=== PATIENT | male | born 1935 | race Caucasian/White ===

== ENCOUNTER → 2017-07-22 08:58 | Outpatient (CLI) | payer MEDICARE, OTHER ==
[2010-05-02 11:23] VITALS: BMI 26.3
[2017-07-22 09:49] LABS: HEMATOCRIT 38.7 % (42.0-54.0); HEMOGLOBIN 12.6 g/dL (13.5-17.5); MCH 29.9 pg (26.0-34.0); MCHC 32.6 g/dL (31.0-37.0); MCV 91.7 fL (80.0-100.0); MEAN PLATELET VOLUME 9.2 fL (7.4-10.4); RBC 4.22 10x6/uL (4.20-6.10); RDW 13.8 % (11.5-14.5); WBC 8.5 10x3/uL (4.8-10.8)
[2017-07-22 09:59] LABS: PLATELET COUNT 106 10x3/uL (130-400)
[2017-07-22 10:12] LABS: APPEARANCE CLEAR (CLEAR); BILIRUBIN NEGATIVE (NEGATIVE); COLOR YELLOW (YELLOW); GLUCOSE NEGATIVE (NEGATIVE); KETONE NEGATIVE (NEGATIVE); LEUKOCYTE ESTERASE NEGATIVE (NEGATIVE); NITRITE NEGATIVE (NEGATIVE); PROTEIN NEGATIVE (NEGATIVE); SPECIFIC GRAVITY 1.025 (1.005-1.020); UROBILINOGEN NORMAL (NORMAL)
[2017-07-22 10:31] LABS: EOSINOPHILS 4 % (0-7); LYMPHOCYTES 47 % (15-50); MONOCYTES 8 % (2-11); NEUTROPHILS 40 % (40-80); PLATELET ESTIMATE DECREASED
[2017-07-22 10:41] LABS: ALBUMIN 3.7 g/dL (3.4-5.0); ANION GAP 13.6 mmol/L (8-16); BILIRUBIN - TOTAL 0.45 mg/dL (0.2-1.3); CALCIUM 8.3 mg/dL (8.5-10.1); CARBON DIOXIDE 27.7 mmol/L (21.0-32.0); CHOL - HDL RATIO 4.6 ratio (2.3-4.9); CREATININE - SERUM 1.4 mg/dL (0.6-1.3); POTASSIUM - SERUM 4.3 mmol/L (3.5-5.1); PROTEIN - SERUM 6.8 g/dL (6.4-8.2)
[2017-07-22 10:42] LABS: SCREENING PSA (YEARLY) 5.29 ng/mL (0.00-4.00)
== END | disposition home or self-care (01) ==
LOC: D.LAB 08:58
PROVIDERS: Family Medicine
DX: Z00.00 Encounter for general adult medical examination without abnormal findings (principal); N40.0 Benign prostatic hyperplasia without lower urinary tract symptoms; I10 Essential (primary) hypertension; I25.10 Atherosclerotic heart disease of native coronary artery without angina pectoris

== ENCOUNTER 2017-12-08 12:49 | Emergency (ER) | payer MEDICARE, OTHER ==
[2010-05-02 11:23] VITALS: BMI 26.3
[2017-12-08 14:13] LABS: BASOPHILS 0.3 % (0-2); EOSINOPHILS 2.7 % (0-7); HEMATOCRIT 38.6 % (42.0-54.0); HEMOGLOBIN 12.5 g/dL (13.5-17.5); IMMATURE GRANULOCYTES 0.3 % (0-5); LYMPHOCYTES 48.3 % (15-50); MCH 29.9 pg (26.0-34.0); MCHC 32.4 g/dL (31.0-37.0); MCV 92.3 fL (80.0-100.0); MEAN PLATELET VOLUME 8.9 fL (7.4-10.4); MONOCYTES 11.3 % (2-11); NEUTROPHILS 37.1 % (40-80); PLATELET COUNT 120 10x3/uL (130-400); RBC 4.18 10x6/uL (4.20-6.10); RDW 13.5 % (11.5-14.5); WBC 7.7 10x3/uL (4.8-10.8)
[2017-12-08 14:31] LABS: ALBUMIN 3.7 g/dL (3.4-5.0); ANION GAP 10.1 mmol/L (8-16); BILIRUBIN - TOTAL 0.61 mg/dL (0.2-1.3); CALCIUM 8.6 mg/dL (8.5-10.1); CARBON DIOXIDE 28.8 mmol/L (21.0-32.0); CREATININE - SERUM 1.3 mg/dL (0.6-1.3); POTASSIUM - SERUM 3.9 mmol/L (3.5-5.1)
[2017-12-08 14:56] LABS: APPEARANCE CLEAR (CLEAR); BILIRUBIN NEGATIVE (NEGATIVE); COLOR YELLOW (YELLOW); GLUCOSE NEGATIVE (NEGATIVE); KETONE NEGATIVE (NEGATIVE); NITRITE NEGATIVE (NEGATIVE); PROTEIN NEGATIVE (NEGATIVE); SPECIFIC GRAVITY 1.025 (1.005-1.020); UROBILINOGEN NORMAL (NORMAL)
[2017-12-08 14:57] LABS: RED CELLS - URINE OCC /hpf (0-5); WHITE CELLS - URINE OCC /hpf (0-5)
== END 2017-12-08 16:13 | disposition home or self-care (01) ==
LOC: D.ER 12:49
PROVIDERS: Family Medicine; Nurse Practitioner Family
DX: S29.012A Strain of muscle and tendon of back wall of thorax, initial encounter (principal); X58.XXXA Exposure to other specified factors, initial encounter; Y93.89 Activity, other specified; Y92.019 Unspecified place in single-family (private) house as the place of occurrence of the external cause; N39.0 Urinary tract infection, site not specified

== ENCOUNTER → 2018-01-27 09:58 | Outpatient (CLI) | payer MEDICARE, OTHER ==
[2010-05-02 11:23] VITALS: BMI 26.3
== END | disposition home or self-care (01) ==
LOC: D.US 09:58
DX: M79.605 Pain in left leg (principal); M79.604 Pain in right leg; R22.43 Localized swelling, mass and lump, lower limb, bilateral

== ENCOUNTER 2018-01-30 10:14 | Emergency (ER) | payer MEDICARE, OTHER ==
[2010-05-02 11:23] VITALS: BMI 26.3
[2018-01-30 11:56] LABS: BASOPHILS 0.3 % (0-2); EOSINOPHILS 2.9 % (0-7); HEMATOCRIT 39.1 % (42.0-54.0); HEMOGLOBIN 12.5 g/dL (13.5-17.5); IMMATURE GRANULOCYTES 0.3 % (0-5); LYMPHOCYTES 48.8 % (15-50); MCH 29.3 pg (26.0-34.0); MCV 91.6 fL (80.0-100.0); MEAN PLATELET VOLUME 9.1 fL (7.4-10.4); MONOCYTES 8.3 % (2-11); NEUTROPHILS 39.4 % (40-80); PLATELET COUNT 121 10x3/uL (130-400); RBC 4.27 10x6/uL (4.20-6.10); RDW 13.6 % (11.5-14.5); WBC 7.8 10x3/uL (4.8-10.8)
[2018-01-30 12:08] LABS: INR 1.02 (0.85-1.17)
[2018-01-30 12:11] LABS: ALBUMIN 3.7 g/dL (3.4-5.0); ALKALINE PHOSPHATASE 111 U/L (46-116); ALT (SGPT) 16 U/L (10-68); BILIRUBIN - TOTAL 0.53 mg/dL (0.2-1.3); CALC OSMOLALITY 291 mosm/kg (275-300); CALCIUM 8.6 mg/dL (8.5-10.1); CREATININE - SERUM 1.4 mg/dL (0.6-1.3); GLUCOSE 104 mg/dL (74-106); POTASSIUM - SERUM 4.3 mmol/L (3.5-5.1); SODIUM 143 mmol/L (136-145); UREA NITROGEN 31 mg/dL (7-18); eGFR NON AFRICAN AMERICAN 51 mL/min (90-120)
[2018-01-30 12:15] LABS: TROPONIN-I < 0.017 ng/mL (0.000-0.060)
[2018-01-30 12:16] LABS: CHLORIDE - SERUM 108 mmol/L (98-107)
== END 2018-01-30 13:05 | disposition home or self-care (01) ==
LOC: D.ER 10:14
PROVIDERS: Nurse Practitioner Family
DX: I73.9 Peripheral vascular disease, unspecified (principal)

== ENCOUNTER → 2018-02-17 09:20 | Outpatient (CLI) | payer MEDICARE, OTHER ==
[2010-05-02 11:23] VITALS: BMI 26.3
--- NOTE | ~2018-02-17 | EC ---
PATIENT:KEE ANDERS DATE OF SERVICE: 02/17/18 SEX: M MEDICAL RECORD: [id number] DATE OF : 31 LOCATION:[facility] AGE OF PATIENT: 83 ADMISSION DATE: 02/17/18 REFERRING PHYSICIAN: INTERPRETING PHYSICIAN: CHILANGO MICHAELS MD ECHOCARDIOGRAM REPORT ECHO CHARGES 4 ECHO COMPLETE CLINICAL DIAGNOSIS: PAIN IN LLE, HTN CAD DYSPNEA ECHOCARDIOGRAPHIC MEASUREMENTS (adult normal given) AC root (d.<3.7cm) 4.6 cm LV Septum d (<1.2 cm> 1.4 cm Valve Excursion 1.8 cm LV Septum (systole) 1.8 cm Left Atria (s.<4.0cm> 4.1 cm LVPW d(<1.2cm) 2.2 cm RV (d.<2.3cm) 3.9 cm LVPW (sytole) 2.3 cm LV diastole(<5.6CM) 4.1 cm MV E-F(>70mm/sec) cm LV systole 3.2 cm LVOT Diameter cm MV exc.(>10mm) cm Est.ejection fraction (50-75%) % Pericardial Effusion N DOPPLER: LVIT cm/sec A 110 cm/sec E 57 cm/sec LA cm/sec RVSP mmHg LVOT 135 cm/sec AOP1/2T m/s Asc. Ao 162 cm/sec RVOT 89 cm/sec RA cm/sec PA 127 cm/sec AV Gradient Peak 10.50mmHg AV Mean 5.18 mmHg AV Area 2.6 cm MV Gradient Peak 5.77 mmHg MV Mean 1.85 mmHg MV Area cm COMMENTS: Cellular Equipment Repairer: Shayne LOVETT Manager Documentation: 4 Dr. Michaels TAPE# PACS DATE OF SERVICE: 02/17/2018 PROCEDURE: Transthoracic echocardiogram. FINDINGS: 1. This is a difficult study overall with images being of qualitative quality rather than quantitative. 2. The left ventricle shows an ejection fraction of 55%. There appears to be left ventricular hypertrophy. Inflow characteristics are consistent with diastolic dysfunction. ECHOCARDIOGRAM REPORT [id number] KEE ANDERS 3. The left atrium appears to be grossly dilated. 4. The mitral valve appears to be overall normal with maybe mitral annular calcification. 5. The tricuspid valve is very difficult to visualize, but there was no evidence of pulmonary hypertension. 6. The right ventricle appears to be mildly dilated as well as the right atrium. Interatrial septum was not well visualized. 7. The pulmonic valve is not well visualized. CONCLUSIONS: The patient has grossly normal function with evidence of hypertensive heart disease. TRANSINT:[id number] Voice Confirmation ID: [id number] DOCUMENT ID: [id number] CHILANGO MICHAELS MD at 0755 CC: [id number] DICTATION DATE: 02/18/18 0740 VACUUM COOKER OPERATOR: 02/18/18 0836 DEP CLI 02/17/18 [id number] [place] [address]
== END | disposition home or self-care (01) ==
LOC: D.ECHO 09:20
DX: M79.605 Pain in left leg (principal); R06.02 Shortness of breath; R06.00 Dyspnea, unspecified; I10 Essential (primary) hypertension; I25.10 Atherosclerotic heart disease of native coronary artery without angina pectoris

== ENCOUNTER 2018-04-28 09:33 | Emergency (ER) | payer MEDICARE, OTHER ==
[2010-05-02 11:23] VITALS: BMI 26.3
== END 2018-04-28 12:17 | disposition home or self-care (01) ==
LOC: D.ER 09:33
DX: S32.030A Wedge compression fracture of third lumbar vertebra, initial encounter for closed fracture (principal); S32.040G Wedge compression fracture of fourth lumbar vertebra, subsequent encounter for fracture with delayed healing; S32.050A Wedge compression fracture of fifth lumbar vertebra, initial encounter for closed fracture; X58.XXXA Exposure to other specified factors, initial encounter; Y93.9 Activity, unspecified; Y92.9 Unspecified place or not applicable

== ENCOUNTER → 2018-06-19 11:02 | Outpatient (CLI) | payer MEDICARE, OTHER ==
[2010-05-02 11:23] VITALS: BMI 26.3
[~2018-06-19 11:02] MED LIST: FUROSEMIDE20 MG PO; POTASSIUM99 M1; TENORMIN50 MG PO
[2018-06-19 11:31] LABS: BASOPHILS 0.1 % (0-2); EOSINOPHILS 2.1 % (0-7); HEMATOCRIT 38.2 % (42.0-54.0); HEMOGLOBIN 12.9 g/dL (13.5-17.5); IMMATURE GRANULOCYTES 0.2 % (0-5); LYMPHOCYTES 44.9 % (15-50); MCHC 33.8 g/dL (31.0-37.0); MCV 91.8 fL (80.0-100.0); MEAN PLATELET VOLUME 9.2 fL (7.4-10.4); MONOCYTES 9.6 % (2-11); NEUTROPHILS 43.1 % (40-80); PLATELET COUNT 106 10x3/uL (130-400); RBC 4.16 10x6/uL (4.20-6.10); RDW 14.1 % (11.5-14.5); WBC 8.8 10x3/uL (4.8-10.8)
[2018-06-19 11:57] LABS: ALBUMIN 3.8 g/dL (3.4-5.0); BILIRUBIN - TOTAL 0.78 mg/dL (0.2-1.3); CALCIUM 8.6 mg/dL (8.5-10.1); CARBON DIOXIDE 32.6 mmol/L (21.0-32.0); CREATININE - SERUM 1.5 mg/dL (0.6-1.3); MAGNESIUM - SERUM 2.2 mg/dL (1.8-2.4); PHOSPHOROUS 3.7 mg/dL (2.5-4.9); POTASSIUM - SERUM 4.6 mmol/L (3.5-5.1); PROTEIN - SERUM 6.5 g/dL (6.4-8.2)
== END | disposition home or self-care (01) ==
LOC: D.LAB 11:02
PROVIDERS: Family Medicine
DX: I25.10 Atherosclerotic heart disease of native coronary artery without angina pectoris (principal); I10 Essential (primary) hypertension; R60.9 Edema, unspecified

== ENCOUNTER 2018-08-02 13:15 | Emergency (ER) | payer MEDICARE, OTHER ==
[~2018-08-02] VITALS: Ht 188 cm; Wt 88.6 kg
[2018-08-02 13:20] VITALS: Ht 188 cm; Wt 88.6 kg
[2018-08-02] MEDS ORDERED: FUROSEMIDE20 MG PO (13:21)
[2018-08-02] MEDS ORDERED: POTASSIUM99 M1 (13:21)
[2018-08-02 13:38] LABS: BASOPHILS 0.2 % (0-2); EOSINOPHILS 2.1 % (0-7); HEMATOCRIT 38.8 % (42.0-54.0); HEMOGLOBIN 12.5 g/dL (13.5-17.5); IMMATURE GRANULOCYTES 0.2 % (0-5); LYMPHOCYTES 58.5 % (15-50); MCH 29.8 pg (26.0-34.0); MCHC 32.2 g/dL (31.0-37.0); MCV 92.6 fL (80.0-100.0); MEAN PLATELET VOLUME 9.6 fL (7.4-10.4); MONOCYTES 7.5 % (2-11); NEUTROPHILS 31.5 % (40-80); PLATELET COUNT 122 10x3/uL (130-400); RBC 4.19 10x6/uL (4.20-6.10); RDW 13.6 % (11.5-14.5); WBC 9.9 10x3/uL (4.8-10.8)
[2018-08-02 13:53] LABS: ALBUMIN 3.7 g/dL (3.4-5.0); ALKALINE PHOSPHATASE 98 U/L (46-116); ALT (SGPT) 14 U/L (10-68); BILIRUBIN - TOTAL 0.48 mg/dL (0.2-1.3); CALC OSMOLALITY 286 mosm/kg (275-300); CALCIUM 8.3 mg/dL (8.5-10.1); CARBON DIOXIDE 30.7 mmol/L (21.0-32.0); CHLORIDE - SERUM 106 mmol/L (98-107); CREATININE - SERUM 1.3 mg/dL (0.6-1.3); GLUCOSE 91 mg/dL (74-106); PROTEIN - SERUM 6.9 g/dL (6.4-8.2); SODIUM 142 mmol/L (136-145); UREA NITROGEN 23 mg/dL (7-18); eGFR NON AFRICAN AMERICAN 56 mL/min (90-120)
[2018-08-02 14:05] LABS: CKMB 1.2 U/L (0.0-3.6); CREATINE KINASE 49 UL (21-232); TROPONIN-I < 0.017 ng/mL (0.000-0.060)
[2018-08-02] MEDS ORDERED: TENORMIN50 MG PO (15:02)
[2018-08-02 15:17] VITALS: BP 168/108
== END 2018-08-02 15:18 | disposition home or self-care (01) ==
LOC: D.ER 13:15
PROVIDERS: Emergency Medicine
DX: R07.89 Other chest pain (principal); I10 Essential (primary) hypertension; I25.10 Atherosclerotic heart disease of native coronary artery without angina pectoris; Z85.828 Personal history of other malignant neoplasm of skin

== ENCOUNTER 2018-10-22 13:50 | Emergency (ER) | payer MEDICARE, OTHER ==
[~2018-10-22] VITALS: Ht 188 cm; Wt 0.0 kg
[2018-10-22 13:52] VITALS: Ht 188 cm; Wt 0.0 kg
[2018-10-22 14:41] LABS: BASOPHILS 0.2 % (0-2); EOSINOPHILS 2.1 % (0-7); HEMATOCRIT 31.8 % (42.0-54.0); HEMOGLOBIN 10.1 g/dL (13.5-17.5); IMMATURE GRANULOCYTES 0.2 % (0-5); LYMPHOCYTES 48.8 % (15-50); MCH 29.5 pg (26.0-34.0); MCHC 31.8 g/dL (31.0-37.0); MEAN PLATELET VOLUME 9.7 fL (7.4-10.4); MONOCYTES 9.9 % (2-11); NEUTROPHILS 38.8 % (40-80); RBC 3.42 10x6/uL (4.20-6.10); RDW 14.1 % (11.5-14.5); WBC 5.8 10x3/uL (4.8-10.8)
[2018-10-22 14:45] LABS: ALBUMIN 3.5 g/dL (3.4-5.0); ALKALINE PHOSPHATASE 73 U/L (46-116); ALT (SGPT) 15 U/L (10-68); BILIRUBIN - TOTAL 0.62 mg/dL (0.2-1.3); CALC OSMOLALITY 291 mosm/kg (275-300); CALCIUM 8.3 mg/dL (8.5-10.1); CARBON DIOXIDE 29.2 mmol/L (21.0-32.0); CHLORIDE - SERUM 106 mmol/L (98-107); CREATININE - SERUM 1.4 mg/dL (0.6-1.3); GLUCOSE 92 mg/dL (74-106); PLATELET COUNT 87 10x3/uL (130-400); POTASSIUM - SERUM 4.3 mmol/L (3.5-5.1); PROTEIN - SERUM 6.1 g/dL (6.4-8.2); SODIUM 142 mmol/L (136-145); UREA NITROGEN 37 mg/dL (7-18); eGFR NON AFRICAN AMERICAN 51 mL/min (90-120)
[2018-10-22 14:58] LABS: CKMB 1.1 U/L (0.0-3.6); CREATINE KINASE 49 UL (21-232); PRO BNP 634 pg/mL (0-450)
[2018-10-22 15:01] LABS: TROPONIN-I < 0.017 ng/mL (0.000-0.060)
[2018-10-22 15:10] LABS: PLATELET ESTIMATE DECREASED
[2018-10-22] MEDS ORDERED: ISOSORBIDE MONO30 M1 PO (17:16)
[2018-10-22 18:05] VITALS: BP 160/88
== END 2018-10-22 17:53 | disposition home or self-care (01) ==
LOC: D.ER 13:50
PROVIDERS: Family Medicine
DX: I20.8 Other forms of angina pectoris (principal); I10 Essential (primary) hypertension; N42.9 Disorder of prostate, unspecified

== ENCOUNTER → 2018-11-27 10:34 | Outpatient (CLI) | payer MEDICARE, OTHER ==
[~2018-11-27 10:34] MED LIST changes: +ISOSORBIDE MONO30 M1 PO
== END | disposition home or self-care (01) ==
LOC: D.LAB 10:34
DX: N40.0 Benign prostatic hyperplasia without lower urinary tract symptoms (principal)

== ENCOUNTER 2019-01-29 13:50 | Emergency (ER) | payer MEDICARE, BC ==
[~2019-01-29] VITALS: Ht 188 cm; Wt 90.0 kg
[2019-01-29 14:18] VITALS: Ht 188 cm; Wt 90.0 kg
[2019-01-29] MEDS ORDERED: PROSCAR5 MG PO (14:26)
[2019-01-29] MEDS ORDERED: NAPROXEN250 MG PO (14:26)
[2019-01-29] MEDS ORDERED: CARDURA4 MG PO (14:27)
[2019-01-29] MEDS ORDERED: LASIX40 MG PO (14:28)
[2019-01-29] MEDS ORDERED: ACETAMINOPHEN500 M1 PO (14:28)
[2019-01-29] MEDS ORDERED: MULTI-DAY VITAM1 TAB PO (14:29)
[2019-01-29 16:15] VITALS: BP 140/70
== END 2019-01-29 16:15 | disposition home or self-care (01) ==
LOC: D.ER 13:50
DX: S46.911A Strain of unspecified muscle, fascia and tendon at shoulder and upper arm level, right arm, initial encounter (principal); X58.XXXA Exposure to other specified factors, initial encounter; Y93.89 Activity, other specified; Y92.89 Other specified places as the place of occurrence of the external cause

== ENCOUNTER 2019-09-13 13:40 | Emergency (ER) | payer MEDICARE, BC ==
[~2019-09-13] VITALS: Ht 188 cm; Wt 88.6 kg
[~2019-09-13 13:40] MED LIST changes: +ACETAMINOPHEN500 M1 PO; +CARDURA4 MG PO; +LASIX40 MG PO; +MULTI-DAY VITAM1 TAB PO; +NAPROXEN250 MG PO; +PROSCAR5 MG PO
[2019-09-13 13:47] VITALS: Ht 188 cm; Wt 88.6 kg
[2019-09-13 14:33] LABS: BASOPHILS 0.2 % (0-2); EOSINOPHILS 1.6 % (0-7); HEMOGLOBIN 10.1 g/dL (13.5-17.5); IMMATURE GRANULOCYTES 0.2 % (0-5); MCH 30.1 pg (26.0-34.0); MCHC 31.6 g/dL (31.0-37.0); MCV 95.2 fL (80.0-100.0); MONOCYTES 10.3 % (2-11); NEUTROPHILS 45.7 % (40-80); PLATELET COUNT 89 10x3/uL (130-400); RBC 3.36 10x6/uL (4.20-6.10); RDW 13.4 % (11.5-14.5); WBC 4.9 10x3/uL (4.8-10.8)
[2019-09-13 14:58] LABS: ALBUMIN 3.6 g/dL (3.4-5.0); ANION GAP 10.3 mmol/L (8-16); BILIRUBIN - TOTAL 0.7 mg/dL (0.2-1.3); CARBON DIOXIDE 27.8 mmol/L (21.0-32.0); CREATININE - SERUM 1.3 mg/dL (0.6-1.3); POTASSIUM - SERUM 4.1 mmol/L (3.5-5.1); PROTEIN - SERUM 6.4 g/dL (6.4-8.2)
[2019-09-13 15:09] LABS: PLATELET ESTIMATE DECREASED
[2019-09-13] MEDS ORDERED: NORVASC5 MG PO (15:13)
[2019-09-13 15:29] VITALS: BP 170/76
== END 2019-09-13 15:38 | disposition home or self-care (01) ==
LOC: D.ER 13:40
PROVIDERS: Emergency Medicine
DX: I10 Essential (primary) hypertension (principal); E87.8 Other disorders of electrolyte and fluid balance, not elsewhere classified; I25.10 Atherosclerotic heart disease of native coronary artery without angina pectoris

== ENCOUNTER 2019-11-10 09:46 | Observation (INO) | payer MEDICARE, BC ==
[~2019-11-10] VITALS: Ht 188 cm; Wt 83.9 kg
[~2019-11-10 09:46] MED LIST changes: +NORVASC5 MG PO
[2019-11-10 10:23] LABS: BASOPHILS 0.2 % (0-2); EOSINOPHILS 0.9 % (0-7); HEMATOCRIT 36.2 % (42.0-54.0); HEMOGLOBIN 11.5 g/dL (13.5-17.5); IMMATURE GRANULOCYTES 0.3 % (0-5); LYMPHOCYTES 44.1 % (15-50); MCH 29.8 pg (26.0-34.0); MCHC 31.8 g/dL (31.0-37.0); MCV 93.8 fL (80.0-100.0); MONOCYTES 7.2 % (2-11); NEUTROPHILS 47.3 % (40-80); RBC 3.86 10x6/uL (4.20-6.10); RDW 12.6 % (11.5-14.5); WBC 6.4 10x3/uL (4.8-10.8)
[2019-11-10 10:27] LABS: PLATELET COUNT 107 10x3/uL (130-400)
[2019-11-10 10:32] LABS: CALC OSMOLALITY 292 mosm/kg (275-300); CALCIUM 8.6 mg/dL (8.5-10.1); CARBON DIOXIDE 30.2 mmol/L (21.0-32.0); CHLORIDE - SERUM 109 mmol/L (98-107); CREATININE - SERUM 1.2 mg/dL (0.6-1.3); GLUCOSE 124 mg/dL (74-106); POTASSIUM - SERUM 4.2 mmol/L (3.5-5.1); SODIUM 145 mmol/L (136-145); UREA NITROGEN 22 mg/dL (7-18); eGFR NON AFRICAN AMERICAN 61 mL/min (90-120)
[2019-11-10 10:49] LABS: ALBUMIN 3.5 g/dL (3.4-5.0); ALKALINE PHOSPHATASE 98 U/L (46-116); ALT (SGPT) 20 U/L (10-68); BILIRUBIN - TOTAL 0.45 mg/dL (0.2-1.3); CKMB 0.9 U/L (0.0-3.6); CREATINE KINASE 45 UL (21-232); PROTEIN - SERUM 6.4 g/dL (6.4-8.2)
[2019-11-10 10:50] LABS: TROPONIN-I < 0.017 ng/mL (0.000-0.060)
[2019-11-10 11:00] VITALS: BP 160/81
[2019-11-10 11:08] LABS: APTT 23.7 SECONDS (22.8-39.4); INR 1.04 (0.85-1.17); PROTIME 13.5 SECONDS (11.6-15.0)
[2019-11-10 12:00] VITALS: BP 158/88
[2019-11-10] MEDS ORDERED: NORVASC5 MG PO (13:02)
[2019-11-10 13:13] VITALS: BP 166/93
[2019-11-10 13:20] LABS: APPEARANCE CLEAR (CLEAR); BILIRUBIN NEGATIVE (NEGATIVE); COLOR YELLOW (YELLOW); GLUCOSE NEGATIVE (NEGATIVE); KETONE NEGATIVE (NEGATIVE); NITRITE NEGATIVE (NEGATIVE); PROTEIN NEGATIVE (NEGATIVE); UROBILINOGEN NORMAL (NORMAL)
[2019-11-10 15:38] VITALS: BP 183/89; Ht 188 cm; Wt 83.9 kg
[2019-11-10 19:30] VITALS: BP 138/81
--- NOTE | 2019-11-10 19:30 | NUR ---
1700 PT RESTING IN BED, NO DISTRESS NOTED, DENIES DIZZINES EXCEPT WHEN STANDING, CONT TO MONITOR
[2019-11-11 00:30] VITALS: BP 148/75
[2019-11-11 04:53] LABS: BASOPHILS 0.1 % (0-2); EOSINOPHILS 1.8 % (0-7); HEMATOCRIT 32.9 % (42.0-54.0); HEMOGLOBIN 10.4 g/dL (13.5-17.5); IMMATURE GRANULOCYTES 0.1 % (0-5); LYMPHOCYTES 59.6 % (15-50); MCH 29.5 pg (26.0-34.0); MCHC 31.6 g/dL (31.0-37.0); MCV 93.2 fL (80.0-100.0); MEAN PLATELET VOLUME 9.3 fL (7.4-10.4); MONOCYTES 8.3 % (2-11); NEUTROPHILS 30.1 % (40-80); PLATELET COUNT 110 10x3/uL (130-400); RBC 3.53 10x6/uL (4.20-6.10); RDW 12.7 % (11.5-14.5); WBC 7.7 10x3/uL (4.8-10.8)
[2019-11-11 05:00] VITALS: BP 151/80
[2019-11-11 05:28] LABS: ALBUMIN 3.1 g/dL (3.4-5.0); BILIRUBIN - TOTAL 0.33 mg/dL (0.2-1.3); CALCIUM 7.7 mg/dL (8.5-10.1); CARBON DIOXIDE 28.9 mmol/L (21.0-32.0); CREATININE - SERUM 1.3 mg/dL (0.6-1.3); POTASSIUM - SERUM 3.9 mmol/L (3.5-5.1); PROTEIN - SERUM 5.7 g/dL (6.4-8.2)
--- NOTE | 2019-11-11 08:15 | NUR ---
PT SITTING UP IN BED. RESP EVEN AND UNLABORED. DENIES PAIN AT THIS TIME. FLU SWAB PERFORMED AT THIS TIME PER MD ORDERS. IV TO LEFT AC WITH NS @ 75ML/HR INFUSING VIA PUMP. SITE WITHOUT REDNESS OR EDEMA. EDUCATED PT REGARDING ISOLATION PRECAUTIONS AT THIS TIME. AND AWAITING FLU RESULTS AND IF NEGATIVE ISOLATION WOULD BE DISCONTINUED. PT VOICES UNDERSTANDING. DENIES FURTHER QUESTIONS AT THIS TIME. DENIES FURTHER NEEDS AT THIS TIME. CL WITHIN REACH. ENCOURAGED TO CALL WITH NEEDS. CONTINUE POC
[2019-11-11 09:21] VITALS: BP 137/77
--- NOTE | 2019-11-11 10:40 | CN ---
PATIENT NAME:KEE ANDERS MEDICAL RECORD: [id number] : 31 LOCATION:[facility] ADMIT DATE: 11/10/19 ACCOUNT: [id number] CONSULTING PHYSICIAN: JASON BABIN MD REFERRING PHYSICIAN: LEXII BROWER MD DATE OF CONSULTATION: 11/10/2019 DIAGNOSES: 1. Dizziness. 2. Shortness of breath. 3. Coronary artery disease. 4. Previous cardiac stents. 5. Murmur. 6. Hypertension. HISTORY OF PRESENT ILLNESS: This is a gentleman who we have not seen for years. He thinks 10 years ago. I did a PTCA and stent on him. He was doing well until this morning, he woke up it was very dizzy to the point where he had trouble ambulating. Even when he sat down he was quite dizzy. He did check his blood pressure. His systolic was 210 at the time of the episode. He called the EMS. When EMS arrived his systolic was in the 180 range. When he arrived in the Emergency Room, his systolic is 160 range. His symptomatology has generally improved since this morning. His severe dizziness lasted approximately 2 hours. He had no chest pain. He did have nausea with this, he had mild diaphoresis, mild shortness of breath with this. All this is as well resolved, his EKG is with no abnormalities, only finding on the physical exam was the systolic murmur most likely compatible with aortic sclerosis or aortic stenosis. He has no carotid bruits. PHYSICAL EXAMINATION: CONSTITUTIONAL/GENERAL APPEARANCE: Well nourished, well developed, appears stated age. EYES: Lids and conjunctivae noninjected. No discharge. No pallor. ENT: Lips within normal limit. No cyanosis. No pallor. NECK: Carotid arteries, bilateral normal upstroke. No bruits. No thrills. No jugular venous pressure or distention. CERVICAL LYMPH NODES: Nontender. Nonenlarged. THYROID: Not enlarged. No nodules. CARDIOVASCULAR: Precordial exam, nondisplaced. No heaves or pericardial thrills. Rate and rhythm, regular. Heart sounds, normal S1, normal S2. No S3, no gallop, no rub. Diastolic murmur, not heard. II/ systolic murmur at the right upper sternal border compatible with aortic valve disease. RESPIRATORY: Respiratory effort, unlabored. Normal curvature. No thoracic deformity. No chest wall tenderness. Percussion, resonant. Auscultation, clear. No wheezes, no rales, no rhonchi. ABDOMEN: Soft, nondistended, nontender. No abdominal pain, no vomiting and normal appetite. MUSCULOSKELETAL: No joint tenderness, normal gait, normal tone. SKIN: Warm and dry. OVERALL IMPRESSION: Dizziness, unsure of the exact etiology of his dizziness. He was on blood pressure medications until just a few months ago, it appears that he was on Norvasc 5 and Cardura 4 mg b.i.d. He had a low blood pressure and both his medications were stopped by Dr. Mckeon. Since then, he has been hypertensive, not as hypertensive as this morning. Clearly, his symptomatology CONSULT REPORT [id number] KEE ANDERS was associated with hypertension this morning. Would suggest restarting his Norvasc but not restarting the Cardura. We will get an echocardiogram to evaluate the murmur. Otherwise, I do not think that this is overtly cardiac in nature. TRANSINT:[id number] Voice Confirmation ID: [id number] DOCUMENT ID: [id number] JASON BABIN MD at 1040 CC: [id number] DICTATION DATE: 11/10/19 115 CATERING CHEF: 11/10/192008 ADM IN [facility] [address] [place] [address]
--- NOTE | 2019-11-11 10:40 | EC ---
PATIENT:KEE ANDERS DATE OF SERVICE: 11/10/19 SEX: M MEDICAL RECORD: [id number] DATE OF : 31 LOCATION:[facility] AGE OF PATIENT: 84 ADMISSION DATE: 11/10/19 REFERRING PHYSICIAN: INTERPRETING PHYSICIAN: JASON HERBERT MD ECHOCARDIOGRAM REPORT ECHO CHARGES 5 ECHO LIMITED Date: 11/10/19 CLINICAL DIAGNOSIS: DIZZINESS, HX CAD ECHOCARDIOGRAPHIC MEASUREMENTS (adult normal given) AC root (d.<3.7cm) cm LV Septum d (<1.2 cm> cm Valve Excursion 4.2 cm LV Septum (systole) cm Left Atria (s.<4.0cm> 3.9 cm LVPW d(<1.2cm) cm RV (d.<2.3cm) 5.2 cm LVPW (sytole) cm LV diastole(<5.6CM) 3.8 cm MV E-F(>70mm/sec) cm LV systole 3.8 cm LVOT Diameter 2.3 cm MV exc.(>10mm) cm Est.ejection fraction (50-75%) % DOPPLER: LVIT cm/sec A 99.0 cm/sec E 125.0 cm/sec LA cm/sec RVSP mmHg LVOT 100 cm/sec AOP1/2T m/s Asc. Ao 121 cm/sec RVOT cm/sec RA cm/sec PA cm/sec AV Gradient Peak 5.82 mmHg AV Mean 2.82 mmHg AV Area 3.8 cm MV Gradient Peak 6.72 mmHg MV Mean 3.37 mmHg MV Area cm COMMENTS: Insulation Blower: Shayne LOVETT Procedure Rn: 1 Dr. Herbert TAPE# PACS Pericardial Effusion N DATE OF SERVICE: 11/10/2019 ECHOCARDIOGRAM FINDINGS: 1. Left ventricular chamber size is within normal limits. Left ventricular systolic function is normal. Overall ejection fraction estimated at 55% to 60%. 2. Left atrium is enlarged at 4.2 cm. Right atrium and right ventricular chamber sizes are within normal limits. 3. Valvular structures have normal structure and motion. ECHOCARDIOGRAM REPORT [id number] KEE ANDERS 4. Doppler interrogation reveals mild mitral regurgitation, no other valvular insufficiency or stenosis. 5. No evidence of pericardial effusion or left ventricular thrombus. TRANSINT:[id number] Voice Confirmation ID: [id number] DOCUMENT ID: [id number] JASON HERBERT MD at 1040 CC: [id number] DICTATION DATE: 11/10/191705 KENO WRITER / RUNNER: 11/11/19 0138 ADM IN [facility] [address] [id number]
[2019-11-11 17:28] VITALS: BP 126/78
[2019-11-11 19:30] VITALS: BP 140/81
--- NOTE | 2019-11-12 00:10 | NUR ---
ASSESSED AT THE BEGINNING OF THE SHIFT. PT IS ALERT AND ORIENTED, ABLE TO VERBALIZE NEEDS. HE DID NOT HAVE ANY MEDS AT BEDTIME BUT WAS CHECKED ON TO MAKE SURE HE WAS COMFORTABLE. AT THIS TIME NO REQUESTES VOICED.
[2019-11-12 00:30] VITALS: BP 165/92
[2019-11-12 05:19] VITALS: BP 176/90
[2019-11-12 06:45] LABS: ANION GAP 11.1 mmol/L (8-16); CALCIUM 7.7 mg/dL (8.5-10.1); CARBON DIOXIDE 25.7 mmol/L (21.0-32.0); CREATININE - SERUM 1.2 mg/dL (0.6-1.3); POTASSIUM - SERUM 3.8 mmol/L (3.5-5.1)
[2019-11-12 06:49] LABS: BASOPHILS 0.1 % (0-2); EOSINOPHILS 2.2 % (0-7); HEMATOCRIT 33.2 % (42.0-54.0); HEMOGLOBIN 10.6 g/dL (13.5-17.5); LYMPHOCYTES 59.7 % (15-50); MCH 29.6 pg (26.0-34.0); MCHC 31.9 g/dL (31.0-37.0); MCV 92.7 fL (80.0-100.0); MEAN PLATELET VOLUME 9.2 fL (7.4-10.4); MONOCYTES 9.6 % (2-11); NEUTROPHILS 28.4 % (40-80); PLATELET COUNT 97 10x3/uL (130-400); RBC 3.58 10x6/uL (4.20-6.10); RDW 12.8 % (11.5-14.5); WBC 7.8 10x3/uL (4.8-10.8)
--- NOTE | 2019-11-12 07:00 | NUR ---
PT IS RESTING IN BED WITH EYES OPEN. RESPIRATIONS ARE EVEN AND UNLABORED. PT DENIES PRESENCE OF PAIN/N/V. PT DENIES DIZZINESS. PT IS AAO X 4. BED IS IN THE LOWEST POSITION. CALL LIGHT AND BEDSIDE TABLE ARE WITHIN REACH. SIDE RAILS X 2. PT DENIES FURTHER NEEDS. WILL CONT TO MONITOR.
[2019-11-12] MEDS ORDERED: NORVASC5 MG PO (07:33)
[2019-11-12] MEDS ORDERED: AUGMENTIN 875-11 TAB PO (07:33)
[2019-11-12 08:50] VITALS: BP 124/85
--- NOTE | 2019-11-12 10:48 | NUR ---
ALL DISCHARGE INSTRUCTIONS COVERED WITH PT. (2) PRINTED RX GIVEN TO PT. PT VERBALIZES UNDERSTANDING OF DC INSTRUCTIONS. PIV TO LEFT AC REMOVED WITH CATHETER TIP INTACT. DRESSING APPLIED. PT DENIES FURTHER QUESTIONS/CONCERNS/NEEDS AT THIS TIME. ALL DISCHARGE PAPERS SIGNED. PT TO NOTIFY NURSE WHEN READY FOR DISCHARGE.
--- NOTE | 2019-11-12 10:53 | NUR ---
PT IS REQUESTING TO BE TRANSPORTED DOWNSTAIRS TO WAIT FOR TRANSPORTATION AND IS ADAMENT ON NOT WAITING IN ROOM. PT STATES "THAT IS FINE AND I CAN WAIT AND SIT RIGHT THERE IN A CHAIR DOWNSTAIRS. HE IS ON HIS WAY AND IS IN A HURRY BECAUSE HE NEEDS TO GET TO WORK". [facility] STAFF NOTIFIED OF PT NEED FOR ASSISTANCE.
--- NOTE | 2019-11-12 11:01 | NUR ---
PT TRANSPORTED FROM ROOM VIA WHEELCHAIR ESCORTED BY [facility]. PT DENIES FURTHER QUESTIONS/CONCERNS/NEEDS AT THIS TIME.
[2019-11-12 11:28] LABS: PLATELET ESTIMATE DECREASED
[2019-11-12 11:29] LABS: HYPOCHROMASIA OCC; ROULEAUX OCC
== END 2019-11-12 11:02 | disposition home or self-care (01) ==
LOC: D.ER 09:46 → D.MS 13:45 → OBSVTIME 13:45 → D.MS 13:45
PROVIDERS: Emergency Medicine; Family Medicine; ADMIT Legal Medicine; ATTEND Legal Medicine
DX: R55 Syncope and collapse (principal); I10 Essential (primary) hypertension; R42 Dizziness and giddiness; D64.9 Anemia, unspecified; K11.8 Other diseases of salivary glands; R01.1 Cardiac murmur, unspecified; I25.10 Atherosclerotic heart disease of native coronary artery without angina pectoris; R06.02 Shortness of breath; Z95.5 Presence of coronary angioplasty implant and graft

== ENCOUNTER → 2019-11-17 11:09 | Outpatient (CLI) | payer MEDICARE, BC ==
[~2019-11-17 11:09] MED LIST changes: +AUGMENTIN 875-11 TAB PO
[2019-11-17 13:32] LABS: HEMATOCRIT 38.8 % (42.0-54.0); HEMOGLOBIN 12.3 g/dL (13.5-17.5); MCH 29.6 pg (26.0-34.0); MCHC 31.7 g/dL (31.0-37.0); MCV 93.5 fL (80.0-100.0); MEAN PLATELET VOLUME 9.4 fL (7.4-10.4); PLATELET COUNT 127 10x3/uL (130-400); RBC 4.15 10x6/uL (4.20-6.10); RDW 12.8 % (11.5-14.5); WBC 8.6 10x3/uL (4.8-10.8)
[2019-11-17 14:23] LABS: ANISOCYTOSIS OCC; EOSINOPHILS 2 % (0-7); LYMPHOCYTES 51 % (15-50); MONOCYTES 10 % (2-11); NEUTROPHILS 36 % (40-80); PLATELET ESTIMATE NORMAL
== END | disposition home or self-care (01) ==
LOC: D.LABREF 11:09
PROVIDERS: ATTEND Legal Medicine
DX: I10 Essential (primary) hypertension (principal); D64.9 Anemia, unspecified

== ENCOUNTER → 2021-03-28 09:35 | Outpatient (CLI) | payer MEDICARE, BC ==
[2021-03-28 10:05] LABS: HEMOGLOBIN 11.5 g/dL (13.5-17.5); LYMPHOCYTE ABS# 4.77 10x3/uL (1.32-3.57); MCH 28.9 pg (26.0-34.0); MCHC 31.9 g/dL (31.0-37.0); MCV 90.5 fL (80.0-100.0); MEAN PLATELET VOLUME 9.2 fL (7.4-10.4); NEUTROPHIL ABS# 2.88 10x3/uL (1.78-5.38); PLATELET COUNT 116 10x3/uL (130-400); RBC 3.98 10x6/uL (4.20-6.10); RDW 14.1 % (11.5-14.5); WBC 9.1 10x3/uL (4.8-10.8)
[2021-03-28 10:32] LABS: ALBUMIN 3.6 g/dL (3.4-5.0); ALKALINE PHOSPHATASE 103 U/L (30-120); ALT (SGPT) 22 U/L (10-68); BILIRUBIN - TOTAL 0.41 mg/dL (0.2-1.3); CALC OSMOLALITY 292 mosm/kg (275-300); CALCIUM 8.6 mg/dL (8.5-10.1); CARBON DIOXIDE 28.9 mmol/L (21.0-32.0); CHLORIDE - SERUM 108 mmol/L (98-107); CHOL - HDL RATIO 4.1 ratio (2.3-4.9); CHOLESTEROL, TOTAL 168 mg/dL (0-200); CREATININE - SERUM 1.4 mg/dL (0.6-1.3); GLUCOSE 99 mg/dL (74-106); HDL CHOLESTEROL 41 mg/dL (32-96); LDL CHOLESTEROL 109 mg/dL (0-100); LDL-HDL RATIO 2.7 ratio (1.5-3.5); POTASSIUM - SERUM 4.5 mmol/L (3.5-5.1); PROTEIN - SERUM 6.8 g/dL (6.4-8.2); SODIUM 144 mmol/L (136-145); THYROID STIMULATING HORMONE 2.54 uIU/mL (0.36-3.74); TRIGLYCERIDE 94 mg/dL (30-200); UREA NITROGEN 28 mg/dL (7-18); eGFR NON AFRICAN AMERICAN 51 mL/min (90-120)
[2021-03-28 12:22] LABS: EOSINOPHILS 10 % (0-7); LYMPHOCYTES 49 % (15-50); MONOCYTES 9 % (2-11); NEUTROPHILS 32 % (40-80); PLATELET ESTIMATE DECREASED
== END | disposition home or self-care (01) ==
LOC: D.LAB 09:35
PROVIDERS: ATTEND Family Medicine
DX: J44.9 Chronic obstructive pulmonary disease, unspecified (principal); Z00.00 Encounter for general adult medical examination without abnormal findings; I10 Essential (primary) hypertension; R06.2 Wheezing; N40.0 Benign prostatic hyperplasia without lower urinary tract symptoms; I25.10 Atherosclerotic heart disease of native coronary artery without angina pectoris; Z11.52 Encounter for screening for COVID-19; N18.30 Chronic kidney disease, stage 3 unspecified